=== PATIENT | male | born 1980 | race Caucasian/White ===

== ENCOUNTER 2017-02-26 13:47 | Emergency (ER) | payer MEDICAID, OTHER ==
[~2017-02-26] VITALS: Ht 175.3 cm; Wt 89.0 kg
[~2017-02-26 13:47] MED LIST: CLON-528 PO; HYDR-565 PO; TERB250T4
[2017-02-26] MEDS ORDERED: ACET-3067 PO (14:56)
[2017-02-26 15:26] VITALS: BP 148/80
== END 2017-02-26 15:28 | disposition home or self-care (01) ==
LOC: ER 13:48
DX: M25.562 Pain in left knee (principal); Z79.899 Other long term (current) drug therapy
CPT/HCPCS: 73564; 99284

== ENCOUNTER 2017-03-06 13:02 | Outpatient (CLI) | payer OTHER ==
[2017-03-06 13:04] VITALS: BP 137/84
== END 2017-03-06 13:40 | disposition home or self-care (01) ==
LOC: ORTHO 13:02
PROVIDERS: ATTEND Nurse Practitioner Family
DX: S83.422A Sprain of lateral collateral ligament of left knee, initial encounter (principal); F41.9 Anxiety disorder, unspecified; F17.210 Nicotine dependence, cigarettes, uncomplicated; X58.XXXA Exposure to other specified factors, initial encounter; Y93.89 Activity, other specified; Y92.89 Other specified places as the place of occurrence of the external cause; Y99.8 Other external cause status
CPT/HCPCS: A4467

== ENCOUNTER → 2017-03-27 | Outpatient (CLI) | payer MEDICAID ==
[2017-03-27 14:18] VITALS: BP 156/86
== END ==
LOC: ORTHO 14:01
PROVIDERS: ATTEND Nurse Practitioner Family
DX: S89.92XD Unspecified injury of left lower leg, subsequent encounter (principal); F17.210 Nicotine dependence, cigarettes, uncomplicated; F12.90 Cannabis use, unspecified, uncomplicated; X58.XXXD Exposure to other specified factors, subsequent encounter
CPT/HCPCS: 99213

== ENCOUNTER 2017-04-11 09:31 | Outpatient (CLI) | payer MEDICAID | END 2017-04-11 23:59 | disposition home or self-care (01) | LOC: RAD 09:31 | PROVIDERS: ATTEND Nurse Practitioner Family | DX: S83.422D Sprain of lateral collateral ligament of left knee, subsequent encounter (principal); M25.462 Effusion, left knee; X58.XXXD Exposure to other specified factors, subsequent encounter | CPT/HCPCS: 73721 ==

== ENCOUNTER 2017-04-26 11:06 | Outpatient (CLI) | payer MEDICAID ==
[~2017-04-26] VITALS: Ht 175.3 cm; Wt 90.0 kg
[2017-04-26 11:08] VITALS: BP 156/86
== END 2017-04-26 12:40 | disposition home or self-care (01) ==
LOC: ORTHO 11:06
PROVIDERS: ATTEND Nurse Practitioner Family
DX: S83.512D Sprain of anterior cruciate ligament of left knee, subsequent encounter (principal); F17.210 Nicotine dependence, cigarettes, uncomplicated; I10 Essential (primary) hypertension; Z98.890 Other specified postprocedural states
CPT/HCPCS: 73564; 99215

== ENCOUNTER 2017-05-16 07:39 | Day surgery (SDC) | payer MEDICAID ==
[2017-05-14 15:40] LABS: BASOPHILS % (AUTO) 0.5 % (0-1); EOSINOPHILS # (AUTO) 0.2 X10'3 (0-0.9); LYMPHOCYTES # (AUTO) 2.8 X10'3 (1.1-4.8); LYMPHOCYTES % (AUTO) 33.4 % (21-51); MEAN CORPUSCULAR HEMOGLOBIN 31.6 PG (27.0-31.0); MEAN CORPUSCULAR VOLUME 90.4 FL (78-98); MEAN PLATELET VOLUME 7.6 FL (7.4-10.4); MONOCYTES # (AUTO) 0.7 X10'3 (0-0.9); MONOCYTES % (AUTO) 8.7 % (2-12); NEUTROPHILS # (AUTO) 4.6 X10'3 (1.8-7.7); NEUTROPHILS % (AUTO) 54.4 % (42-75); PRE OP HEMATOCRIT 41.9 % (42.0-52.0); PRE OP HEMOGLOBIN 14.7 g/dL (14.0-17.9); PRE OP PLATELET COUNT 279 X10'3 (140-440); RED BLOOD COUNT 4.64 X10'6 (4.70-6.10); RED CELL DISTRIBUTION WIDTH 13.7 % (11.5-14.5)
[2017-05-14 15:56] LABS: ALBUMIN/GLOBULIN RATIO 1.1 (1.1-1.5); ALKALINE PHOSPHATASE 61 IU/L (46-116); BLOOD UREA NITROGEN 14 MG/DL (7-18); BUN/CREATININE RATIO 15.6 (5.4-32.0); CALCIUM 9.5 MG/DL (8.5-10.1); CHLORIDE 104 MMOL/L (99-107); PRE OP ALT 41 U/L (30-65); PRE OP ANION GAP 9 (8-16); PRE OP AST 29 U/L (10-37); PRE OP BILIRUB, TOTAL 0.6 MG/DL (0.0-1.0); PRE OP GLUCOSE 102 MG/DL (70-104); PRE OP POTASSIUM 3.8 MMOL/L (3.4-5.1); PRE OP SODIUM 139 MMOL/L (135-145); TOTAL CARBON DIOXIDE 26.2 MMOL/L (24-32); TOTAL PROTEIN 7.8 G/DL (6.4-8.2); eGFR > 90 ML/MIN
[~2017-05-16] VITALS: Ht 175.3 cm; Wt 87.0 kg
[2017-05-16] VITALS (11 sets, daily range): BP systolic 112–146; BP diastolic 56–86
[~2017-05-16 07:39] MED LIST changes: -CLON-528 PO; -HYDR-565 PO; +NO HOME MEDS; -TERB250T4; +ceFAZolin inj. 2,000 MG in normal saline 100ml IV soln 100 ML IV ONE; +famotidine 20mg tablet PO ONE; +ringers solution, lacted 1,000 ML IV SCH; +vancomycin inj 1,500 MG in normal saline 300ml IV soln IV ONE
[2017-05-16] MEDS ORDERED: ceFAZolin inj. 2,000 MG in normal saline 100ml IV soln 100 ML IV ONE (08:00)
[2017-05-16] MEDS ORDERED: epiNEPHrine 1 mg/ml inj ONE (08:13)
[2017-05-16] MEDS ORDERED: ceFAZolin 1000mg inj ONE (08:13)
[2017-05-16] MEDS ORDERED: gelatin sponge, absorbable (Gelfoam 100) sponge TP ONE (08:13)
[2017-05-16] MEDS ORDERED: ROPIVAcaine 0.5% (5mg/ml) 30ml vial ONE ×2 (08:13→09:36)
[2017-05-16] MEDS ORDERED: Thrombin (Bovine) 5,000 unit vial TP ONE (08:13)
[2017-05-16] MEDS ORDERED: midazolam 2 mg/2 ml injection ONE (09:17)
[2017-05-16] MEDS ORDERED: cloNIDine hcl/PF 100mcg/ml inj ONE (09:36)
[2017-05-16] MEDS ORDERED: fentaNYL/PF 50MCG/1 ML 2ML syringe ONE (09:38)
[2017-05-16] MEDS ORDERED: dexamethasone sod phosphate 4mg/ml inj. ONE (09:42)
[2017-05-16] MEDS ORDERED: LIDOcaine 2% (20mg/ml) 5ml vial ONE (09:42)
[2017-05-16] MEDS ORDERED: propofol inj 20 ML IV ONE (09:42)
[2017-05-16] MEDS ORDERED: ondansetron/PF 4mg/2ml inj ONE (09:43)
[2017-05-16] MEDS ORDERED: sevoflurane 250ml liquid IH ONE ×2 (10:15)
[2017-05-16] MEDS ORDERED: ringers solution, lacted 1,000 ML IV SCH (11:07)
[2017-05-16] MEDS ORDERED: ondansetron/PF 4mg/2ml inj IV PRN (11:10)
[2017-05-16] MEDS ORDERED: hydrALAZINE 20mg/ml inj. IV PRN (11:10)
[2017-05-16] MEDS ORDERED: labetalol 5mg/ml 20ml inj. IV PRN (11:10)
[2017-05-16] MEDS ORDERED: fentaNYL/PF 50MCG/1 ML 2ML syringe IV PRN ×2 (11:10)
[2017-05-16] MEDS ORDERED: morphine 4 MG/ML inj SYRINge IV PRN ×2 (11:10)
[2017-05-16] MEDS ORDERED: morphine 10mg/ml inj. ONE ×2 (11:52)
[2017-05-16] MEDS ORDERED: ketorolac trometh. 30mg/ml inj. ONE (12:30)
[2017-05-16] MEDS ORDERED: HYDROcodone/acetaminophen 10/325mg tab PO PRN (14:10)
== END 2017-05-16 14:49 | disposition home or self-care (01) ==
LOC: PAS 07:39
PROVIDERS: ATTEND Orthopaedic Surgery
DX: S83.512A Sprain of anterior cruciate ligament of left knee, initial encounter (principal); I10 Essential (primary) hypertension; F41.0 Panic disorder [episodic paroxysmal anxiety]; F17.210 Nicotine dependence, cigarettes, uncomplicated; G89.18 Other acute postprocedural pain; Z72.89 Other problems related to lifestyle; Z98.890 Other specified postprocedural states; Z86.19 Personal history of other infectious and parasitic diseases; V29.88XA Motorcycle rider (driver) (passenger) injured in other specified transport accidents, initial encounter; Y93.55 Activity, bike riding; Y92.89 Other specified places as the place of occurrence of the external cause
CPT/HCPCS: 29888; 36415; 64447; 71046; 80053; 85025; 93005; A6449; C1713; C1750; J0690; J0735; J1100; J1885; J2001; J2250; J2270; J2405; J2704; J2795; J3010; J7030; J7120; L1832; A7000; J0171

== ENCOUNTER 2017-05-25 09:44 | Outpatient (CLI) | payer MEDICAID ==
[~2017-05-25 09:44] MED LIST changes: -ceFAZolin inj. 2,000 MG in normal saline 100ml IV soln 100 ML IV ONE; -famotidine 20mg tablet PO ONE; -ringers solution, lacted 1,000 ML IV SCH; -vancomycin inj 1,500 MG in normal saline 300ml IV soln IV ONE
== END 2017-05-25 10:45 | disposition home or self-care (01) ==
LOC: ORTHO 09:44
PROVIDERS: ATTEND Nurse Practitioner Family
DX: S83.512D Sprain of anterior cruciate ligament of left knee, subsequent encounter (principal); F17.210 Nicotine dependence, cigarettes, uncomplicated; X58.XXXD Exposure to other specified factors, subsequent encounter
CPT/HCPCS: 99214; A6449

== ENCOUNTER 2017-06-01 14:00 | Outpatient (CLI) | payer MEDICAID | END 2017-06-01 15:10 | disposition home or self-care (01) | LOC: ORTHO 14:00 | PROVIDERS: ATTEND Nurse Practitioner Family | DX: S83.512D Sprain of anterior cruciate ligament of left knee, subsequent encounter (principal); F17.210 Nicotine dependence, cigarettes, uncomplicated; X58.XXXD Exposure to other specified factors, subsequent encounter | CPT/HCPCS: 99214 ==

== ENCOUNTER 2017-06-28 09:07 | Outpatient (CLI) | payer MEDICAID ==
[2017-06-28 09:10] VITALS: BP 144/79
== END 2017-06-28 09:42 | disposition home or self-care (01) ==
LOC: ORTHO 09:07
PROVIDERS: ATTEND Nurse Practitioner Family
DX: S83.512D Sprain of anterior cruciate ligament of left knee, subsequent encounter (principal); Z87.891 Personal history of nicotine dependence; X58.XXXD Exposure to other specified factors, subsequent encounter
CPT/HCPCS: 99213

== ENCOUNTER 2017-08-01 15:08 | Outpatient (CLI) | payer MEDICAID | END 2017-08-01 15:52 | disposition home or self-care (01) | LOC: ORTHO 15:08 | PROVIDERS: ATTEND Nurse Practitioner Family | DX: S83.512D Sprain of anterior cruciate ligament of left knee, subsequent encounter (principal); F17.210 Nicotine dependence, cigarettes, uncomplicated | CPT/HCPCS: 73560 ==

== ENCOUNTER 2021-03-05 15:28 | Emergency (ER) | payer BC, MEDICAID ==
[~2021-03-05] VITALS: Ht 175.3 cm; Wt 77.3 kg
[2021-03-05 17:02] VITALS: BP 136/104
== END 2021-03-05 17:57 ==
LOC: ER 15:28
DX: Z04.1 Encounter for examination and observation following transport accident (principal); I10 Essential (primary) hypertension; F12.90 Cannabis use, unspecified, uncomplicated; Z86.19 Personal history of other infectious and parasitic diseases; V47.0XXA Car driver injured in collision with fixed or stationary object in nontraffic accident, initial encounter; Y93.89 Activity, other specified; Y92.89 Other specified places as the place of occurrence of the external cause; Y99.8 Other external cause status
CPT/HCPCS: 99283

== ENCOUNTER 2022-12-18 08:59 | Emergency (ER) | payer BC, OTHER ==
[~2022-12-18] VITALS: Ht 175.3 cm; Wt 86.4 kg
[2022-12-18 09:39] VITALS: BP 136/88; PULSE 82; TEMP 97.9; O2SAT 97
[2022-12-18] MEDS ORDERED: ketorolac trometh inj. 60 MG/2 ML VIAL IM ONE (11:35)
[2022-12-18] MEDS ORDERED: HYDR-3973 PO ×2 (11:38→11:41)
[2022-12-18] MEDS ORDERED: HYDROcodone/acetaminophen 10/325mg tab PO ONE (11:40)
[2022-12-18 12:07] VITALS: RESP 18
== END 2022-12-18 12:12 | disposition home or self-care (01) ==
LOC: ER 09:00
DX: S22.32XA Fracture of one rib, left side, initial encounter for closed fracture (principal); I10 Essential (primary) hypertension; F12.90 Cannabis use, unspecified, uncomplicated; Z72.89 Other problems related to lifestyle; Z79.899 Other long term (current) drug therapy; F17.210 Nicotine dependence, cigarettes, uncomplicated; W01.0XXA Fall on same level from slipping, tripping and stumbling without subsequent striking against object, initial encounter; Z91.81 History of falling; Y93.89 Activity, other specified; Y92.89 Other specified places as the place of occurrence of the external cause; Y99.8 Other external cause status
CPT/HCPCS: 71250; 96372; 99285; J1885; A6449